=== PATIENT | female | born 1995 | race Caucasian/White ===

== ENCOUNTER 2023-03-23 11:06 | Emergency (ER) | payer OTHER ==
[~2023-03-23] VITALS: Ht 154.9 cm; Wt 84.0 kg
[2023-03-23 11:23] VITALS: BP 128/78; PULSE 86; RESP 20; TEMP 98.1; O2SAT 100
[2023-03-23] MEDS ORDERED: EMLAC TP (11:36)
[2023-03-23] MEDS ORDERED: IBUP-1842 PO (11:36)
== END 2023-03-23 12:11 | disposition home or self-care (01) ==
LOC: MED 11:06
DX: M25.561 Pain in right knee (principal); Z79.899 Other long term (current) drug therapy; Z79.1 Long term (current) use of non-steroidal anti-inflammatories (NSAID)
CPT/HCPCS: 81025; 99282